=== PATIENT | male | born 1995 | race Two or more races ===

== ENCOUNTER 2022-11-04 18:08 | Emergency (ER) | payer SELFPAY ==
[~2022-11-04] VITALS: Ht 182.9 cm; Wt 86.4 kg
[2022-11-04 19:19] VITALS: BP 121/61
== END 2022-11-04 22:19 | disposition left against medical advice (07) ==
LOC: EMS 18:11
DX: Z53.21 Procedure and treatment not carried out due to patient leaving prior to being seen by health care provider (principal)
CPT/HCPCS: 99281; Z7502